=== PATIENT | male | born 1985 | race Caucasian/White ===

== ENCOUNTER → 2021-07-12 | Outpatient (CLI) | payer OTHER ==
[~2021-07-12] MED LIST: CELE100C PO; CYCL10TA19 PO
--- NOTE | 2021-07-12 15:14 | RAD ---
EXAM: RENAL ULTRASOUND CLINICAL HISTORY: Abdominal pain. History of kidney stones COMPARISON: None available. TECHNIQUE: Ultrasound examination of the bilateral kidneys and urinary bladder was performed. FINDINGS: Right kidney measures 11.2 x 4.1 x 6.0 cm. Left kidney measures 11.2 x 3.8 x 5.9 cm. No hyd ronephrosis, nephrolithiasis, or focal renal lesion is identified. The bladder is unremarkable in jermaine earance. No significant postvoid residual identified. IMPRESSION: Unremarkable sonographic appearance of the kidneys. Electronically signed by: Mingo Abarca MD (07/12/2021 3:12 PM) [id number]
== END ==
LOC: US 12:44
PROVIDERS: ATTEND Family Medicine
DX: R10.9 Unspecified abdominal pain (principal); Z87.442 Personal history of urinary calculi
CPT/HCPCS: 76770